=== PATIENT | female | born 1995 | race Caucasian/White ===

== ENCOUNTER 2016-12-21 19:15 | Emergency (ER) | payer BC, OTHER ==
[~2016-12-21] VITALS: Ht 177.8 cm; Wt 120.7 kg
[2016-12-21 19:41] VITALS: Ht 177.8 cm; Wt 120.7 kg
[2016-12-21] MEDS ORDERED: ESCI10TA PO (21:03)
[2016-12-21] MEDS ORDERED: ESCI20TA PO (21:03)
[2016-12-21] MEDS ORDERED: ESCI5TAB PO (21:03)
[2016-12-21] MEDS ORDERED: BUPR150T3 PO (21:04)
--- NOTE | 2016-12-21 21:05 | ERPDOC ---
Departure Disposition Decision Date: December 21, 2016 Disposition Decision Time: 21:06 Disposition: 01 DISCHARGED HOME, SELF-CARE Impression Impression Impression: Primary Impression: Spider bite Encounter type: initial encounter Injury intent: accidental or unintentional Qualified Codes: T63.301A - Toxic effect of unspecified spider venom, accidental (unintentional), initial encounter Condition: Stable Seen By: Mid-level only Referrals: JESSICA SAGE MD (Family) Patient Instructions: Brown Recluse Spider Bite (ED), Insect Bite or Sting (ED) Problems/Meds/Labs Reviewed?: Yes Medications reviewed and manag: Yes Additional Instructions: Watch carefully for sign/symptoms of infection (fever, increasing pain, red streaking up the arm, expanding redness). Follow with your orthopedic physician regarding if they recommend an antibiotic. Follow treatment plan. Follow with your PCP Friday for re-evaluation. Follow up care ordered?: Yes Mental Status: Alert, Oriented HPI - Skin General General Chief Complaint: Skin Injury Stated Complaint: POSS SPIDER BITE ON RIGHT ARM Time Seen by Provider: 21:01 Source: patient HPI - Skin General Initial Comments 21 YO F presents to ED with concern for a spider bite on right forearm. Patient noticed erythema and vesicles today. Denies fever, chill, drainage or pain. Patient had a bone graft to right wrist approx. 2 weeks ago and forearm is splinted. Area of concern is proximal of cast. Possible Cause: insect bite Associated Symptoms: DENIES: change in skin texture, edema, fever, flushing, headache, hives, jaundice, malaise, nasal congestion, numbness, pallor, paresthesia, petechiae, rash, sore throat, swelling/mass/lumps, tingling Allergies: Coded Allergies: No Known Allergies (Unverified , 12/21/16) Past History Past Medical History Metabolic: DENIES: cancer, diabetes, gout, hypercholesterolemia, hypertension, hyperthyroidism, hypothyroidism Cardiac: DENIES: angina Respiratory: DENIES: asthma GI: DENIES: ulcers Female: DENIES: renal insufficiency Neurological: DENIES: seizures Musculoskeletal: DENIES: rheumatoid arthritis Psychological: depression Surgical History General: other (myringotomy) Joint: other (right wrist) Review of Systems Constitutional Constitutional: DENIES: chills, fever Eyes General: DENIES: erythema, exudate Lids/Accessories: DENIES: erythema, swelling ENMT Ears: DENIES: pain Sinuses: DENIES: congestion, rhinorrhea Mouth/Throat: DENIES: sore throat Cardiovascular Cardiac: DENIES: chest pain, murmur Rhythm/Rate: DENIES: palpitations Pulmonary Respiratory: DENIES: cough, dyspnea GI Upper Abdomen: DENIES: nausea, pain, vomiting Lower Abdomen: DENIES: diarrhea, pain General: DENIES: dysuria, pain Musculoskeletal General: pain, see HPI Integumentary Skin: color change, itching, DENIES: rash Neurological General: DENIES: ataxia, change in strength, numbness, paralysis/paresis, weakness Psychiatric Psychiatric: DENIES: anxiety, depression, nervousness Physical Exam General General Nourishment: well nourished, well developed, no acute distress, obese General Body Habitus: well groomed Vitals and Pain First Documented Vital Signs Date Time Temp Pulse Resp B/P Pulse Ox O2 Delivery O2 Flow Rate FiO2 /17 19:41 97.9 91 18 110/54 97 Room Air Weight: Kilograms: 120.700 Height (feet): 5 Height (inches): 10.00 Triage Pain Scale: Eyes (brief) Eyes Brief: found: EOMI, PERRL ENMT (brief) ENMT Brief: NOT FOUND: nasal exudate, nasal swelling Neck (brief) Neck: FOUND: trachea midline Respiratory (brief) Respiratory: FOUND: clear all hurt, equal bilaterally, symmetrical Cardiovascular (brief) Cardiac: FOUND: regular rate, regular rhythm Capillary Refill: <2 sec Pulses: all distal extremities, equal, strong Abdomen (brief) Abdominal Brief: FOUND: bowel normo active x4, soft, NOT FOUND: distended, tender Musculoskeletal (brief) Musculoskeletal Brief: NOT FOUND: deformity, tenderness Integumentary (brief) Integumentary Brief: FOUND: dry, pink, warm Integumentary General: FOUND: dry, warm Color: FOUND: pink Comments Approx. a 2 cm x 4 cm area of erythema with 4 approx. 1-2mm vesicles over proximal right forearm. Mild increased warmth to touch. No fluctuance or induration appreciated. Neurologic (brief) Neurological Brief: FOUND: motor-no gross deficits, sensory-no gross deficits Psychiatric (brief) Psychiatric Brief: FOUND: alert, normal affect, oriented Differential Diagnoses Considering: Bite, Contact Dermatitis, Eczema, Insect Sting Progress Progress Progress I discussed exam finding with patient and that lesion on arm did look consistent to early spider bite, however that she will need to watch and wait to see if there is necrosis. I discussed close follow up with her PCP for re- evaluation, treatment plan and return precautions. Patient offered antibiotic but she declined. PATRICIA WILSON APRN December 21, 2016 21:05 PATRICIA WILSON APRN December 21, 2016 21:05
[2016-12-21] MEDS ORDERED: CHOL100092 PO (21:06)
[2016-12-21] MEDS ORDERED: ASPI-917 PO (21:06)
[2016-12-21 21:25] VITALS: BP 110/54; PULSE 91; RESP 18; TEMP 97.9; O2SAT 97
== END 2016-12-21 21:25 | disposition home or self-care (01) ==
LOC: ED 19:15
DX: T63.301A Toxic effect of unspecified spider venom, accidental (unintentional), initial encounter (principal); Y92.9 Unspecified place or not applicable